=== PATIENT | male | born 1965 | race Caucasian/White ===

== ENCOUNTER → 2020-03-02 17:30 | Outpatient (CLI) | payer MEDICARE, SELFPAY ==
--- NOTE | 2020-03-02 18:08 | MRI_ITS ---
STUDY: MRI LUMBAR SPINE WITHOUT CONTRAST REASON FOR EXAM: Male, 54 years old. back pain radiating down R leg x 15 yrs TECHNIQUE: Standardized fat and water weighted pulse sequences were obtained in the sagittal and axial planes. COMPARISON: None FINDINGS: Transitional anatomy is present. For the purposes of the numbering scheme used in this report, partial lumbarization of S1 is assumed. T12-L1: Normal endplates. Normal disc height, hydration and morphology. Normal bilateral facet joints. Normal central canal and bilateral lateral recesses. Normal bilateral intervertebral neural foramina. Normal lumbar lordosis. There is no substantial scoliosis. Normal conus medullaris that terminates at the L2 level. L1-2: Normal endplates. Normal disc height, hydration and morphology. Normal bilateral facet joints. Normal central canal and bilateral lateral recesses. Normal bilateral intervertebral neural foramina. L2-3: Bulging annulus and bilateral facet hypertrophy with mild right foraminal stenosis. L3-4: Bulging annulus and bilateral facet hypertrophy with mild bilateral foraminal stenoses. L4-5: Bulging annulus and bilateral facet hypertrophy with mild to moderate bilateral foraminal stenoses. L5-S1: Bulging annulus and bilateral facet hypertrophy. Left foraminal disc protrusion with mass effect on the exiting left L5 nerve root. Normal visualized sacral ala. Normal visualized paraspinous soft tissue structures. MRI/Spine Lumbar (Routine) IMPRESSION: Multilevel degenerative disease as described. Left foraminal disc protrusion at the L5-S1 level with mass effect on the exiting left L5 nerve root. Electronically Signed: Gigi Argueta MD at 19:08 EDT Tel , Service support ,
== END ==
PROVIDERS: PCP Family Medicine; Referring Provider Nurse Practitioner Family; Visit Provider Nurse Practitioner Family
DX: M51.37 Other intervertebral disc degeneration, lumbosacral region (principal)
CPT/HCPCS: 72148